=== PATIENT | female | born 1950 | race Caucasian/White ===

== ENCOUNTER 2024-10-26 06:09 | Day surgery (SDC) | payer MEDICARE, SELFPAY ==
[2024-10-02 10:51] LABS: Hematocrit 48.1 % (37.0-47.0); Mean Corp Hgb Conc. 33.3 g/dL (33.0-37.0); Mean Corpuscular Hgb 29.3 pg (27.0-31.0); Mean Corpuscular Volume 87.9 fL (81.0-99.0); Mean Platelet Volume 11.6 fL (7.4-10.4); Platelet Count 285 10^3/uL (130-400); Red Blood Cell Count 5.47 10^6/uL (4.20-5.40); Red Cell Dist. Width 13.2 % (11.5-14.5); White Blood Cell Count 7.1 10^3/uL (4.8-10.8)
[2024-10-02 11:22] LABS: ALT (SGPT) 46 U/L (0-35); AST (SGOT) 39 U/L (14-36); Albumin 4.8 g/dl (3.5-5.0); Alkaline Phosphatase 54 U/L (38-126); Blood Urea Nitrogen 15 mg/dl (7-17); Calcium 9.5 mg/dl (8.4-10.2); Carbon Dioxide 27 mmol/L (22-30); Chloride 102 mmol/L (98-107); Glucose 108 mg/dl (70-99); Sodium 141 mmol/L (135-145); Total Bilirubin 0.7 mg/dl (0.2-1.3); Total Protein 7.7 g/dl (6.3-8.2); eGFR > 60.00
[2024-10-02 11:46] LABS: Glycohemoglobin (HgbA1c) 6.5 % (4.0-5.6)
[2024-10-02 13:54] VITALS: BMI 29.3
--- NOTE | 2024-10-15 11:53 | VNURNOTE ---
Patient is scheduled for an elective R THR on 10/26/24- she is a same day patient with Dr Smyth. Spoke with patient prior to surgery. Introduced role of [facility] Liaison. Patient reports that she lives with spouse in a MULTI story home.
There is 1 step to enter and a flight of steps to the second floor.
There is a powder room on the dividend deposit entry clerk. She has a raised toilet seat, cane and rolling walker, ice gel pack, DVT proph machine.
PCP is Tere Ortiz
Discussed [facility] joint protocol and post surgical plans.
Reviewed that she will have VN services initially and will then start outpatient PT.
Patient selects [facility] for her home care needs and will go to [facility] for outpatient PT. Scheduled for 10/29.
Patient is in agreement with plan and states that her spouse will be home with her. Advised to bring RW with her day of surgery. Referral placed in [facility].
Plan: [facility] per [facility] joint protocol then outpt PT on 10/29/24
[2024-10-20 09:21] VITALS: BMI 29.3
[2024-10-26] VITALS (12 sets, daily range): BP systolic 101–148; BP diastolic 51–105; BMI 29.3
[2024-10-26] MEDS: CELEBREX 200 MG PO (07:07)
[2024-10-26] MEDS: TYLENOL 650 MG PO (07:07)
[2024-10-26] MEDS: NORMOSOL-R/PLASMALYTE-A 1000 IV (07:08)
--- NOTE | 2024-10-26 07:25 | W.DS.TRANS ---
DC Summary - Document Management Specialist
-
Discharge Instructions:
Sleep Apnea Risk Low
Discharge Diagnosis/Procedures R TOY Dr. Smyth 10/26/24
Diet As tolerated,Diabetic, Carb Controlled
Activity With Walker
Driving Restrictions No driving
Bathing Restrictions OK to Shower
Other Services PT
Instructions:
Stand-Alone Forms: SDS Total Hip and Knee D/C
Changes to Home Medications: Yes
Discharge Medications:
DC Medications w/original date entered in [facility]
cetirizine 10 mg tablet 10 mg PO DAILY 02/18/20
cholecalciferol (vitamin D3) 50 mcg (2,000 unit) tablet 2,000 units PO DAILY 02/18/20
clobetasol 0.05 % topical cream 1 applic topical DAILY eczema 10/20/24
fluticasone propionate 50 mcg/actuation nasal spray,suspension 2 spray intranasal DAILY 10/20/24
guaifenesin 400 mg tablet 400 mg PO DAILY 10/20/24
levothyroxine 125 mcg tablet 125 mcg PO DAILY 10/20/24
mupirocin 2 % topical ointment 1 applic topical BID 10/20/24
propylene glycol 0.6 % eye drops (Systane Complete) 1 drp BOTH EYES DAILY 10/20/24
acetaminophen 500 mg tablet 500 - 1,000 mg (1 - 2 x 500 mg) PO QID #0 tabs 10/26/24
aspirin 325 mg tablet 325 mg PO DAILY blood clot prevention #1 tab 10/26/24
celecoxib 100 mg capsule 100 mg PO BID Anti-inflammatory #14 caps 10/26/24
docusate sodium 100 mg capsule (Colace) 100 mg PO BID stool softner #1 cap 10/26/24
magnesium hydroxide 400 mg/5 mL oral suspension (Milk of Magnesia) 30 ml PO HS PRN Constipation #1 mL 10/26/24
ondansetron 4 mg disintegrating tablet 4 mg PO Q6H PRN n/v #20 tabs 10/26/24
oxycodone 5 mg tablet 5 mg PO Q6H PRN 1 tab moderate pain, 2 tabs severe pain #30 tabs 10/26/24
sennosides 8.6 mg tablet (Senokot) 17.2 mg (2 x 8.6 mg) PO BID laxative #2 tabs 10/26/24
Home Medication Changes
aspirin 325 mg tablet 325 mg PO DAILY blood clot prevention #1 tab 10/26/24
celecoxib 100 mg capsule 100 mg PO BID Anti-inflammatory #14 caps 10/26/24
docusate sodium 100 mg capsule (Colace) 100 mg PO BID stool softner #1 cap 10/26/24
magnesium hydroxide 400 mg/5 mL oral suspension (Milk of Magnesia) 30 ml PO HS PRN Constipation #1 mL 10/26/24
ondansetron 4 mg disintegrating tablet 4 mg PO Q6H PRN n/v #20 tabs 10/26/24
oxycodone 5 mg tablet 5 mg PO Q6H PRN 1 tab moderate pain, 2 tabs severe pain #30 tabs 10/26/24
sennosides 8.6 mg tablet (Senokot) 17.2 mg (2 x 8.6 mg) PO BID laxative #2 tabs 10/26/24
Pending Results: No
[2024-10-26] MEDS: ANCEF 5 IV (12:55)
== END 2024-10-26 13:30 | disposition home or self-care (01) ==
LOC: SDS 06:09
PROVIDERS: ATTENDING PHYSICIAN Specialist; FAMILY PHYSICIAN Physician Assistant
DX: M16.11 Unilateral primary osteoarthritis, right hip (principal)
CPT/HCPCS: 27130; 36415; 73502; 80053; 83036; 85027; 87070; 93005; 97162; C1713; C1776